=== PATIENT | female | born 1955 | race Caucasian/White ===

== ENCOUNTER 2018-01-30 05:49 | Day surgery (SDC) | payer OTHER ==
[2018-01-30] MEDS ORDERED: PROPOFOL 20 ML (08:02)
[2018-01-30] MEDS ORDERED: FENTAnyl 50 MCG/ML VIAL (08:03)
== END 2018-01-30 12:57 | disposition home or self-care (01) ==
LOC: GIL 05:49 → SDS 05:49 → GIL 05:49
DX: Z12.11 Encounter for screening for malignant neoplasm of colon (principal); K29.50 Unspecified chronic gastritis without bleeding; K21.9 Gastro-esophageal reflux disease without esophagitis; K64.8 Other hemorrhoids; I10 Essential (primary) hypertension
CPT/HCPCS: 43239; 88305; 88312